=== PATIENT | female | born 1975 | race Caucasian/White ===

== ENCOUNTER 2021-04-12 13:25 | Outpatient (REF) | payer OTHER, SELFPAY ==
[2021-04-12 14:59] LABS: Binax Internal Control QC Valid; Binax Lot number: 9864; Binax Now Covid-19 Ag Negative (Negative)
== END 2021-04-12 13:26 | disposition home or self-care (01) ==
LOC: HO.LAB 13:25
PROVIDERS: Visit Provider Internal Medicine
DX: Z20.822 Contact with and (suspected) exposure to COVID-19 (principal)
CPT/HCPCS: 36415; C9803

== ENCOUNTER → 2021-12-31 09:32 | Outpatient (BNVA) | payer OTHER, SELFPAY | PROVIDERS: Visit Provider Physician Assistant Medical | DX: M25.461 Effusion, right knee (principal) | CPT/HCPCS: 73564; 99204 ==

== ENCOUNTER 2022-01-03 05:56 | Emergency (ER) | payer OTHER, SELFPAY ==
--- NOTE | ~2022-01-03 | XR_ITS ---
EXAMINATION: XR KNEE, LEFT CLINICAL INFORMATION: Pain COMPARISON: None TECHNIQUE: Three views of the left knee. FINDINGS: Bones and soft tissues are normal. No fracture or joint effusion. Alignment is anatomic. Joint spaces are well maintained. No abnormal soft tissue calcification. XR/XR knee LT 2V IMPRESSION: Normal left knee.
--- NOTE | ~2022-01-03 | XR_ITS ---
EXAMINATION: XR HIP, LEFT. Pelvis CLINICAL INFORMATION: Left hip pain no injury COMPARISON: None TECHNIQUE: Two views of the left hip. Single AP view of the pelvis FINDINGS: Left hip: The hip joint surrounding bone are normal. Surrounding soft tissues unremarkable. Pelvis: The bones and joints are normal. Surgical clips incidentally noted overlying the pelvis. XR/XR hip LT w [id number] IMPRESSION: No acute abnormality in the pelvis or left hip. Postsurgical changes noted
[2022-01-03 06:08] VITALS: BP 139/82; PULSE 102; RESP 16; TEMP 36.6; O2SAT 98; BMI 38.2
--- NOTE | 2022-01-03 08:57 | ED.GENADULT ---
HPI - General Adult General Chief complaint: Extremity Injury, Lower Stated complaint: L side pain, and knee pain Time Seen by Provider: 01/03/22 08:56 Source: patient and family (Mother) Mode of arrival: ambulatory Limitations: no limitations History of Present Illness HPI narrative: 46-year-old female came in for evaluation of low back pain that radiating to the left buttock and left knee. Patient twisted her right knee last week and been complaining of right knee and slightly limping due to right knee pain, 2 days ago started to have low back pain radiating to the left side lower extremities, patient declined any numbness or weakness, no urinary or stool incontinence, is still able to ambulate with pain to the left buttock, thigh, and left knee. Related Data Previous Rx's Medication Instructions Recorded hydromorphone 2 mg tablet 2 mg PO Q6H PRN pain #10 tabs 01/03/22 (Dilaudid) Allergies Allergy/AdvReac Type Severity Reaction Status Date / Time acetaminophen [From Vicodin] Allergy Unknown Verified 01/03/22 06:34 codeine Allergy Unknown Verified 01/03/22 06:34 [From Tylenol-Codeine] hydrocodone [From Vicodin] Allergy Unknown Verified 01/03/22 06:34 meperidine [From Demerol] Allergy Unknown Verified 01/03/22 06:34 oxycodone Allergy Unknown Verified 01/03/22 06:34 Penicillins Allergy Unknown Verified 01/03/22 06:34 Review of Systems Review of Systems: All other systems are reviewed and are negative Constitutional: Reports as per HPI and Reports no additional constitutional complaints Eyes: Reports as per HPI and Reports no additional eye complaints Reports system reviewed and no additional complaints, except as documented Cardiovascular: Reports as per HPI and Reports no additional cardiovascular complaints Respiratory: Reports as per HPI and Reports no additional respiratory complaints Gastrointestinal: Reports as per HPI and Reports no additional gastrointestinal complaints Genitourinary: Reports no additional female genitourinary complaints Musculoskeletal: Reports no additional musculoskeletal complaints Skin/Breast: Reports system reviewed and no additional complaints, except as docu Psychiatric: Reports no additional psychiatric complaints Endocrine: Reports no additional endocrine complaints Hematologic/Lymphatic: Reports no additional hematologic/lymphatic complaints Allergic/Immunologic: Reports no additional allergic/immunologic complaints Reports system reviewed and no additional complaints, except as documented and Reports Abnormal speech present [facility] Social History Social History Advance Directives: No Advance Directives Information Provided: No Physical Exam ED Vital Signs: Vital Signs - 24 hr 01/03/22 06:08 01/03/22 09:16 Temperature 97.8 F Pulse Rate 102 H Respiratory Rate 16 16 Blood Pressure 139/82 Pulse Oximetry 98 Oxygen Delivery Method Room Air BMI result Body Mass Index 38.2 Vital signs have been reviewed as appeared to be correct. Blood pressure normal. Heart rate normal. Respiration rate normal. Temperature normal. Oxygen saturation normal. Appearance: Alert. Oriented X3. No acute distress. Head: Normal external exam. Normocephalic. Atraumatic. No Baxter signs noted. No raccoon eyes noted Eyes: PERRLA. EOMI. Conjunctiva and sclera normal. Eyelids normal. ENT: TM's Normal. Pharynx normal. Uvula midline. Moist mucous membranes. No trismus noted. No drooling noted. No muffled voice noted. Neck: Normal inspection. Neck supple. FROM. No adenopathy. Thyroid Normal. No meningeal signs. No neck mass noted. CVS: Normal heart rate and rhythm. Heart sound normal. No murmurs noted. Pulses normal throughout. Respiratory: No respiratory distress. Painless inspiration. Breath sounds normal. No wheezes/rales/rhonchi noted. Chest nontender. No accessory muscle usage noted or decreased air movement noted. Abdomen: Soft and nontender. Bowel sounds normal in all 4 quadrants. No distention noted. No organomegaly noted. No visible injury noted. Back: No CVA tenderness. Full range of motion noted. Skin: Skin warm and dry. Normal skin color. Normal skin turgor. No rashes/lesions/lacerations noted. Extremities: No lower extremity edema. Extremities exhibit normal range of motion. Extremities nontender. Neuro: Oriented X 3. Cranial nerve exam: II-XII are grossly intact No motor deficit. No sensory deficit. Reflexes normal. Lori anal sensation is intact. Course Course Course Narrative: 46-year-old female with low back pain radiates to the left lower extremities physical exam is consistent with left-sided lumbar radiculopathy, no urinary incontinence or change in motor or sensory function. Patient feels better after was given Dilaudid in the ED will discharge home on p.o. Dilaudid, rest. Medical Decision Making Imaging Data Left hip/left knee x-rays: Attestation: I personally reviewed and interpreted this imaging study as follows: Radiologist's impression: No acute pathology. Discharge Plan Discharge Clinical Impression: Left lumbar radiculopathy Patient Disposition: Home, Self-Care Instructions: Lumbar Radiculopathy (ED) Prescriptions: New hydromorphone [Dilaudid] 2 mg tablet 2 mg PO Q6H PRN (Reason: pain) Qty: 10 0RF Rx Instructions: Partial Fill upon patient request. Referrals: Mariam Valladares PA [Primary Care Provider] - Interventions: ED Discharge Assessment Last Done: 01/03/22 11:34 Discharge Date/Time: 01/03/22 11:35
[2022-01-03] MEDS: Ondansetron ODT 4 MG TAB.RAPDIS TRANSLINGU (09:13)
[2022-01-03 09:16] VITALS: RESP 16
[2022-01-03] MEDS: HYDROmorphone HCl 2 MG/ML VIAL IM (09:16)
== END 2022-01-03 11:35 | disposition home or self-care (01) ==
PROVIDERS: Emergency Provider Emergency Medicine; PCP Physician Assistant Medical
DX: M54.16 Radiculopathy, lumbar region (principal); M25.561 Pain in right knee
CPT/HCPCS: 73502; 73560; 96372; 99283; 99284; J1170